=== PATIENT | female | born 1995 | race Caucasian/White ===

== ENCOUNTER 2016-10-29 17:26 | Emergency (ER) | payer MEDICAID ==
[~2016-10-29] VITALS: Ht 165.1 cm; Wt 98.9 kg
[2016-10-29 18:40] VITALS: BP 146/79
--- NOTE | 2016-10-29 19:37 | NUR ---
Patient ambulated to bed 06.
--- NOTE | 2016-10-29 19:49 | NUR ---
PT PRESENTS TO ER FOR EVALUATION OF VAGINAL BLEEDING DURING . PT STATES SHE IS 14 WEEKS . HX PANCREATITIS, GALLSTONES, KIDNEY STONES.
--- NOTE | 2016-10-29 20:08 | NUR ---
Dr. Jung evaluating patient at bedside.
[2016-10-29] MEDS ORDERED: ACETAMINOPHEN EXTRA STRENGTH 500 MG TAB PO ONE (20:20)
[2016-10-29] MEDS ORDERED: NACL 0.9% 1,000 ML IV ONE (20:20)
--- NOTE | 2016-10-29 21:35 | NUR ---
PIETER DID THE PELVIC EXAM WITH FEMALE NURSE TINO RN AT BEDSIDE
[2016-10-29 22:07] VITALS: BP 131/72
--- NOTE | 2016-10-29 22:10 | NUR ---
Patient discharged with v/s stable. Written and verbal after care instructions given and explained. Patient alert, oriented and verbalized understanding of instructions. Ambulatory with steady gait. All questions addressed prior to discharge. ID band removed. Patient advised to follow up with PMD. Rx of ZOFRAN 4MG ODT, MACROBID CAPSULE 100MG PO given. Patient educated on indication of medication including possible reaction and side effects. Opportunity to ask questions provided and answered.
[2016-12-31] MEDS ORDERED: PRENATAL LOW IR1 TA1 PO (18:01)
== END 2016-10-29 22:10 | disposition home or self-care (01) ==
LOC: MED 17:26
DX: O20.0 Threatened abortion (principal); O23.42 Unspecified infection of urinary tract in pregnancy, second trimester; Z3A.15 15 weeks gestation of pregnancy
CPT/HCPCS: 36415; 76801; 81001; 81025; 84702; 85025; 86900; 86901; 87077; 87086; 87186; 96360; 99285; J7030

== ENCOUNTER 2016-12-31 17:05 | Observation (INO) | payer OTHER ==
[~2016-12-31] VITALS: Ht 165.1 cm; Wt 97.5 kg
[2016-12-31] MEDS ORDERED: PREN-380 PO (18:01)
[2016-12-31 18:03] VITALS: BP 117/72
[2016-12-31 18:10] LABS: APPEARANCE,URINE CLEAR (CLEAR); BILIRUBIN,URINE NEGATIVE (NEGATIVE); BLOOD, URINE NEGATIVE (NEGATIVE); COLOR,URINE YELLOW (YELLOW); LEUKOCYTE ESTERASE ,URINE NEGATIVE (NEGATIVE); NITRITE, URINE NEGATIVE (NEGATIVE); PROTEIN,URINE NEGATIVE (NEGATIVE); UGLUCOSE NEGATIVE (NEGATIVE); UROBILINOGEN,URINE 0.2 EU/dL (0.2 - 1)
[2016-12-31 18:15] LABS: BACTERIA,URINE 1+ /HPF (None Seen); RBC,URINE 0-3 /HPF (0-5); WBC,URINE 0-3 /HPF (0-5)
== END 2016-12-31 20:05 | disposition home or self-care (01) ==
LOC: MLD 17:05
PROVIDERS: ADMIT Obstetrics & Gynecology; ATTEND Obstetrics & Gynecology
DX: O26.892 Other specified pregnancy related conditions, second trimester (principal); R10.30 Lower abdominal pain, unspecified; Z3A.21 21 weeks gestation of pregnancy
CPT/HCPCS: 76805; 81001; 87086; G0378; Q0092

== ENCOUNTER 2019-05-13 07:25 | Emergency (ER) | payer OTHER ==
[~2019-05-13] VITALS: Ht 165.1 cm; Wt 98.5 kg
[~2019-05-13 07:25] MED LIST: PREN-380 PO
[2019-05-13 07:34] VITALS: BP 128/85
--- NOTE | 2019-05-13 07:50 | NUR ---
Pt. ambulated to bed 2
--- NOTE | 2019-05-13 07:54 | NUR ---
BIB SELF. AAO X4 C/O HEADACHE,SORE THROAT, DRY COUGH, BODYACHES, CHILLS X 2 DAYS. PT STATES THAT SHE IS COUGHING A LOT CAUSING HER IRRITATION TO HER THROAT. PT DENIES SOB, FEVER. PT TOOK NYQUIL LAST NIGHT WITH NO RELIEF.PMH:BELLS PALSY, PANCREATITIS, GALLSTONES. PATIENT STATES PAIN OF 6/10 AT THIS TIME; PATIENT POSITIONED FOR COMFORT; HOB ELEVATED; BEDRAILS UP X1; BED DOWN. ER MD MADE AWARE OF PT STATUS.
--- NOTE | 2019-05-13 08:02 | NUR ---
Dr. Gurrola evaluating patient at bedside
[2019-05-13 08:38] VITALS: BP 121/86
--- NOTE | 2019-05-13 08:38 | NUR ---
Patient discharged with v/s stable. Written and verbal after care instructions given and explained. Patient verbalized understanding. Ambulatory with steady gait. All questions addressed prior to discharge. Advised to follow up with PMD.
== END 2019-05-13 08:38 | disposition home or self-care (01) ==
LOC: MED 07:25
DX: R05 Cough (principal); J02.9 Acute pharyngitis, unspecified; M79.10 Myalgia, unspecified site; Z79.899 Other long term (current) drug therapy
CPT/HCPCS: 99281

== ENCOUNTER 2023-03-02 14:54 | Emergency (ER) | payer OTHER ==
[~2023-03-02] VITALS: Ht 165.1 cm; Wt 93.9 kg
[2023-03-02 15:02] VITALS: BP 150/86
[2023-03-02] MEDS ORDERED: KETOROLAC 30 MG/ML VIAL IM ONE (15:50)
[2023-03-02] MEDS ORDERED: IBUP-2213 PO (16:54)
--- NOTE | 2023-03-02 17:06 | NUR ---
KANE WRAP APPLIED TO R FA
--- NOTE | 2023-03-02 17:33 | NUR ---
pt left without dc instructions
== END 2023-03-02 17:28 | disposition home or self-care (01) ==
LOC: MED 14:54
DX: S53.491A Other sprain of right elbow, initial encounter (principal); Z79.899 Other long term (current) drug therapy; W18.30XA Fall on same level, unspecified, initial encounter; Y93.89 Activity, other specified; Y92.89 Other specified places as the place of occurrence of the external cause; Y99.8 Other external cause status
CPT/HCPCS: 73080; 73090; 81025; 96372; 99284; J1885

== ENCOUNTER 2023-05-07 12:24 | Emergency (ER) | payer OTHER ==
[~2023-05-07] VITALS: Ht 165.1 cm; Wt 93.0 kg
[~2023-05-07 12:24] MED LIST changes: +IBUP-2213 PO
[2023-05-07 12:49] VITALS: BP 131/77; PULSE 80; RESP 20; TEMP 98.1; O2SAT 99
[2023-05-07] MEDS ORDERED: ONDANSETRON 4 MG/2 ML VIAL IVP ONE (13:00)
[2023-05-07] MEDS ORDERED: NACL 0.9% 1,000 ML IV ONE (13:00)
[2023-05-07 13:52] LABS: BASOPHILS % (AUTO) 0.4 % (0.0-2.0); EOSINOPHILS # (AUTO) 0.3 K/uL (0-0.4); EOSINOPHILS % (AUTO) 2.7 % (0.0-4.0); HEMATOCRIT 36.8 % (36-48); HEMOGLOBIN 12.4 g/dL (12.0-16.0); LYMPHOCYTES % (AUTO) 21.5 % (20.5-51.1); MEAN CORPUSCULAR HEMOGLOBIN 28 pg (27-31); MEAN CORPUSCULAR HGB CONC 34 g/dL (33-37); MEAN CORPUSCULAR VOLUME 82.8 fL (80-94); MONOCYTES # (AUTO) 0.8 K/uL (0.8-1.0); MONOCYTES % (AUTO) 8.2 % (1.7-9.3); NEUTROPHILS # (AUTO) 6.2 K/uL (1.8-7.7); NEUTROPHILS % (AUTO) 67.2 % (42.2-75.2); PLATELET COUNT (AUTO) 292 K/uL (140-450); RED BLOOD CELL COUNT(AUTO) 4.44 MIL/uL (4.20-5.40); RED CELL DISTRIBUTION WIDTH 13.5 % (11.6-13.7); WHITE BLOOD COUNT (AUTO) 9.3 K/uL (4.8-10.8)
[2023-05-07 14:06] LABS: ALBUMIN 3.4 g/dL (3.4-5.0); ANION GAP 9.4 (8-16); CALCIUM 8.5 mg/dL (8.5-10.1); CARBON DIOXIDE 27.2 mmol/L (21-32); CREATININE 0.8 mg/dL (0.6-1.3); POTASSIUM 3.6 mmol/L (3.5-5.1); TOTAL BILIRUBIN 0.6 mg/dL (0.0-1.0); TOTAL PROTEIN, SERUM 7.2 g/dL (6.4-8.2)
[2023-05-07] MEDS ORDERED: ONDA-188 SL (14:12)
[2023-05-07] MEDS ORDERED: KETOROLAC 30 MG/ML VIAL IVP ONE (14:15)
[2023-05-07 14:40] VITALS: BP 129/75; PULSE 79; RESP 20; TEMP 98.1; O2SAT 99
== END 2023-05-07 14:40 | disposition home or self-care (01) ==
LOC: MED 12:24
DX: A08.4 Viral intestinal infection, unspecified (principal); Z79.899 Other long term (current) drug therapy
CPT/HCPCS: 36415; 80053; 81025; 85025; 96361; 96374; 96375; 99284; J1885; J2405; J7030

== ENCOUNTER 2023-05-17 11:24 | Emergency (ER) | payer OTHER ==
[~2023-05-17] VITALS: Ht 165.1 cm; Wt 93.9 kg
[~2023-05-17 11:24] MED LIST changes: +ONDA-188 SL
[2023-05-17 11:56] VITALS: BP 144/89; PULSE 99; RESP 16; TEMP 98.1; O2SAT 99
[2023-05-17 12:15] VITALS: O2SAT 99
[2023-05-17] MEDS ORDERED: KETOROLAC 15 MG/ML VIAL IVP ONE (12:20)
[2023-05-17] MEDS ORDERED: NACL 0.9% 1,000 ML IV ONE (12:20)
[2023-05-17] MEDS ORDERED: ONDANSETRON 4 MG/2 ML VIAL IVP ONE (12:20)
[2023-05-17 12:39] LABS: BASOPHILS # (AUTO) 0.1 K/uL (0.00-0.22); BASOPHILS % (AUTO) 0.7 % (0.0-2.0); EOSINOPHILS # (AUTO) 0.1 K/uL (0-0.4); EOSINOPHILS % (AUTO) 1.7 % (0.0-4.0); HEMATOCRIT 39.5 % (36-48); HEMOGLOBIN 13.3 g/dL (12.0-16.0); LYMPHOCYTES # (AUTO) 2.3 K/uL (2.5-16.5); LYMPHOCYTES % (AUTO) 28.6 % (20.5-51.1); MEAN CORPUSCULAR HEMOGLOBIN 28 pg (27-31); MEAN CORPUSCULAR HGB CONC 34 g/dL (33-37); MEAN CORPUSCULAR VOLUME 82.2 fL (80-94); MONOCYTES # (AUTO) 0.8 K/uL (0.8-1.0); MONOCYTES % (AUTO) 9.3 % (1.7-9.3); NEUTROPHILS # (AUTO) 4.9 K/uL (1.8-7.7); NEUTROPHILS % (AUTO) 59.7 % (42.2-75.2); PLATELET COUNT (AUTO) 333 K/uL (140-450); RED BLOOD CELL COUNT(AUTO) 4.81 MIL/uL (4.20-5.40); RED CELL DISTRIBUTION WIDTH 13.4 % (11.6-13.7); WHITE BLOOD COUNT (AUTO) 8.2 K/uL (4.8-10.8)
[2023-05-17 12:58] LABS: ALBUMIN 3.8 g/dL (3.4-5.0); ANION GAP 9.7 (8-16); CARBON DIOXIDE 30.1 mmol/L (21-32); CREATININE 0.9 mg/dL (0.6-1.3); POTASSIUM 3.8 mmol/L (3.5-5.1); TOTAL BILIRUBIN 0.7 mg/dL (0.0-1.0); TOTAL PROTEIN, SERUM 7.7 g/dL (6.4-8.2)
[2023-05-17 13:10] LABS: CALCIUM 9.2 mg/dL (8.5-10.1)
[2023-05-17] MEDS ORDERED: AMOX1TAB8 PO (13:35)
[2023-05-17] MEDS ORDERED: ONDA-188 PO (13:35)
[2023-05-17] MEDS ORDERED: FAMO-90 PO (13:35)
[2023-05-17] MEDS ORDERED: MAG355OR2 PO (13:35)
[2023-05-17] MEDS ORDERED: IBUP-2213 PO (13:35)
[2023-05-17] MEDS ORDERED: HYDROcodone/APAP 5/325 MG 1 TAB TAB PO ONE (13:45)
[2023-05-17 14:15] VITALS: BP 135/82; PULSE 88; RESP 16; TEMP 98.1; O2SAT 99
== END 2023-05-17 14:15 | disposition home or self-care (01) ==
LOC: MED 11:24
DX: I88.0 Nonspecific mesenteric lymphadenitis (principal); K29.70 Gastritis, unspecified, without bleeding; Z79.899 Other long term (current) drug therapy
CPT/HCPCS: 36415; 74176; 80053; 81002; 81025; 83690; 85025; 96361; 96374; 96375; 99285; J1885; J2405; J7030

== ENCOUNTER 2023-09-08 17:18 | Emergency (ER) | payer OTHER ==
[~2023-09-08] VITALS: Ht 165.1 cm; Wt 90.7 kg
[~2023-09-08 17:18] MED LIST changes: +AMOX1TAB8 PO; +FAMO-90 PO; +MAG355OR2 PO; +ONDA-188 PO
[2023-09-08 17:32] VITALS: BP 126/79; PULSE 103; RESP 16; TEMP 99.4; O2SAT 96
[2023-09-08] MEDS: ACETAMINOPHEN EXTRA STRENGTH 500 MG TAB PO ONE (17:54)
[2023-09-08 18:33] LABS: FLU A ANTIGEN negative (NEGATIVE); FLU B ANTIGEN negative (NEGATIVE)
[2023-09-08] MEDS ORDERED: AZIT250T4 PO (18:51)
== END 2023-09-08 18:57 | disposition home or self-care (01) ==
LOC: MED 17:18
DX: J02.9 Acute pharyngitis, unspecified (principal); Z20.822 Contact with and (suspected) exposure to COVID-19; Z79.899 Other long term (current) drug therapy; Z79.2 Long term (current) use of antibiotics; Z79.1 Long term (current) use of non-steroidal anti-inflammatories (NSAID)
CPT/HCPCS: 87081; 99283

== ENCOUNTER 2023-12-18 14:56 | Emergency (ER) | payer OTHER ==
[~2023-12-18] VITALS: Ht 165.1 cm; Wt 97.5 kg
[~2023-12-18 14:56] MED LIST changes: +AZIT250T4 PO
[2023-12-18 15:18] VITALS: BP 133/89; PULSE 75; RESP 12; TEMP 97.7; O2SAT 99
[2023-12-18 16:23] LABS: BASOPHILS # (AUTO) 0.1 K/uL (0.00-0.22); EOSINOPHILS # (AUTO) 0.2 K/uL (0-0.4); EOSINOPHILS % (AUTO) 2.3 % (0.0-4.0); HEMATOCRIT 36.8 % (36-48); HEMOGLOBIN 12.6 g/dL (12.0-16.0); LYMPHOCYTES # (AUTO) 2.4 K/uL (2.5-16.5); LYMPHOCYTES % (AUTO) 32.1 % (20.5-51.1); MEAN CORPUSCULAR HEMOGLOBIN 28 pg (27-31); MEAN CORPUSCULAR HGB CONC 34 g/dL (33-37); MEAN CORPUSCULAR VOLUME 81.7 fL (80-94); MONOCYTES # (AUTO) 0.5 K/uL (0.8-1.0); MONOCYTES % (AUTO) 6.7 % (1.7-9.3); NEUTROPHILS # (AUTO) 4.4 K/uL (1.8-7.7); NEUTROPHILS % (AUTO) 57.9 % (42.2-75.2); PLATELET COUNT (AUTO) 301 K/uL (140-450); RED CELL DISTRIBUTION WIDTH 14.3 % (11.6-13.7); WHITE BLOOD COUNT (AUTO) 7.6 K/uL (4.8-10.8)
[2023-12-18 16:33] LABS: ANION GAP 12.4 (8-16); CALCIUM 8.7 mg/dL (8.5-10.1); CARBON DIOXIDE 26.3 mmol/L (21-32); CREATININE 0.8 mg/dL (0.6-1.3); POTASSIUM 3.7 mmol/L (3.5-5.1)
[2023-12-18 17:04] VITALS: BP 127/79; PULSE 81; RESP 14; TEMP 98.1; O2SAT 96
== END 2023-12-18 17:04 | disposition home or self-care (01) ==
LOC: MED 14:56
DX: R07.89 Other chest pain (principal); R11.0 Nausea; R06.02 Shortness of breath; R03.0 Elevated blood-pressure reading, without diagnosis of hypertension; Z79.1 Long term (current) use of non-steroidal anti-inflammatories (NSAID); Z79.899 Other long term (current) drug therapy
CPT/HCPCS: 36415; 71045; 80048; 84484; 85025; 85379; 93005; 99285; Q0092

== ENCOUNTER 2024-07-05 17:03 | Emergency (ER) | payer OTHER ==
[~2024-07-05] VITALS: Ht 165.1 cm; Wt 104.8 kg
[2024-07-05 18:02] VITALS: BP 154/96; PULSE 91; RESP 18; TEMP 97.6; O2SAT 100
[2024-07-05] MEDS: HYDROcodone/APAP 5/325 MG 1 TAB TAB PO ONE (18:56)
[2024-07-05 19:45] LABS: BASOPHILS # (AUTO) 0.1 K/uL (0.00-0.22); BASOPHILS % (AUTO) 0.6 % (0.0-2.0); EOSINOPHILS # (AUTO) 0.2 K/uL (0-0.4); EOSINOPHILS % (AUTO) 1.9 % (0.0-4.0); HEMOGLOBIN 13.6 g/dL (12.0-16.0); LYMPHOCYTES # (AUTO) 2.8 K/uL (2.5-16.5); LYMPHOCYTES % (AUTO) 25.7 % (20.5-51.1); MEAN CORPUSCULAR HEMOGLOBIN 28 pg (27-31); MEAN CORPUSCULAR HGB CONC 34 g/dL (33-37); MEAN CORPUSCULAR VOLUME 82.9 fL (80-94); MONOCYTES # (AUTO) 0.7 K/uL (0.8-1.0); MONOCYTES % (AUTO) 6.8 % (1.7-9.3); NEUTROPHILS # (AUTO) 7.1 K/uL (1.8-7.7); PLATELET COUNT (AUTO) 310 K/uL (140-450); RED BLOOD CELL COUNT(AUTO) 4.82 MIL/uL (4.20-5.40); RED CELL DISTRIBUTION WIDTH 13.5 % (11.6-13.7); WHITE BLOOD COUNT (AUTO) 10.9 K/uL (4.8-10.8)
[2024-07-05 20:02] LABS: CARBON DIOXIDE 26.5 mmol/L (21-32); CREATININE 0.8 mg/dL (0.6-1.3); POTASSIUM 3.5 mmol/L (3.5-5.1)
[2024-07-05] MEDS ORDERED: ACET-8905 PO (20:18)
[2024-07-05] MEDS ORDERED: ACET500T99 PO (20:18)
[2024-07-05] MEDS ORDERED: CLIN300C2 PO (20:18)
[2024-07-05] MEDS ORDERED: IBUP-2213 PO (20:18)
[2024-07-05] MEDS ORDERED: CLIN150C1 PO (20:22)
[2024-07-05] MEDS: CLINDAMYCIN 600 MG/4 ML VIAL IV ONE (21:07)
[2024-07-05] MEDS: KETOROLAC 30 MG/ML VIAL IVP ONE (21:08)
[2024-07-05 21:11] VITALS: BP 154/96; PULSE 91; RESP 18; TEMP 97.6
[2024-07-05 21:12] VITALS: O2SAT 100
== END 2024-07-05 21:11 | disposition home or self-care (01) ==
LOC: MED 17:03
DX: K04.7 Periapical abscess without sinus (principal); Z79.899 Other long term (current) drug therapy
CPT/HCPCS: 36415; 80048; 85025; 96374; 96375; 99284; J1885; J3490